=== PATIENT | female | born 1965 | race Caucasian/White ===

== ENCOUNTER 2017-06-01 06:10 | Day surgery (SDC) | payer OTHER ==
[2017-05-31 12:30] VITALS: BMI 33.7
[2017-06-01] MEDS ORDERED: Midazolam HCl 2 mg/2 ml Vial ONE (06:22)
[2017-06-01] MEDS ORDERED: Ropivacaine 0.2% HCl/PF 20 ML ONE (06:22)
[2017-06-01] MEDS ORDERED: Fentanyl 100 MCG/2 ML VIAL ONE (06:22)
[2017-06-01] MEDS ORDERED: Lidocaine 1% (PF) 30 ML VIAL ONE ×2 (06:23→06:47)
[2017-06-01] MEDS ORDERED: Ropivacaine 0.5% HCl/PF (150 MG/30 ML VIAL) ONE (06:42)
[2017-06-01] MEDS ORDERED: CEFAZOLIN/Water 2 GM/20 ML SYRINGE ONE (06:46)
[2017-06-01] MEDS ORDERED: Zolpidem Tartrate 5 MG TAB PO PRN (07:17)
[2017-06-01] MEDS ORDERED: traMADol HCl 50 MG TAB PO PRN ×2 (07:17)
[2017-06-01] MEDS ORDERED: HYDROcodone/Acetaminophen 5/325 mg Tablet PO PRN ×2 (07:17)
[2017-06-01] MEDS ORDERED: Ondansetron HCl/PF 4 MG/2 ML Vial IVP PRN (07:17)
[2017-06-01] MEDS ORDERED: Promethazine HCl 25 MG/ML VIAL IM PRN (07:17)
[2017-06-01] MEDS ORDERED: Ropivacaine 0.2% 550 ML 550 ML NERVE BLCK SCH (07:17)
[2017-06-01] MEDS ORDERED: EPINEPHrine 1 MG/ML AMP ONE (08:31)
[2017-06-01] MEDS ORDERED: Glycopyrrolate 0.2 MG/ML 5 ML SYRINGE ONE (09:02)
[2017-06-01] MEDS ORDERED: Ketorolac Tromethamine 30 MG/ML VIAL ONE (09:02)
[2017-06-01] MEDS ORDERED: PHENYLEPHRINE-NS 100 MCG/ML 10 ML SYRINGE ONE (09:02)
[2017-06-01] MEDS ORDERED: PROPOFOL 200 MG/20 ML VIAL ONE (09:02)
[2017-06-01] MEDS ORDERED: Ondansetron HCl/PF 4 MG/2 ML Vial ONE (09:02)
[2017-06-01] MEDS ORDERED: Dexamethasone 20 MG/5 ML VIAL ONE (09:02)
[2017-06-01] MEDS ORDERED: ePHEDrine/0.9% NaCl/PF SYRINGE 50 mg/10 ml ONE (09:02)
--- NOTE | 2017-06-04 01:23 | OP ---
DATE OF OPERATION: 06/01/2016 PREOPERATIVE DIAGNOSES: 1. Right shoulder labral tear with associated cyst formation. 2. Right shoulder proximal biceps tendinopathy with tear. 3. Right acromioclavicular arthritis, severe. POSTOPERATIVE DIAGNOSES: 1. Right shoulder labral tear with associated cyst formation. 2. Right shoulder proximal biceps tendinopathy with tear. 3. Right acromioclavicular arthritis, severe. PROCEDURES PERFORMED: 1. Right shoulder arthroscopy with extensive labral debridement. 2. Open biceps tenodesis, subpectoral. 3. Open distal clavicle excision. SURGEON: Rob Small MD ANESTHESIA: General with upper extremity regional block. ESTIMATED BLOOD LOSS: 20 mL DRAINS: None. SPECIMENS: None. COMPLICATIONS: None. ORTHOPEDIC IMPLANTS: Arthrex cortical button for proximal biceps tenodesis. OPERATIVE INDICATIONS: The patient is a pleasant 52-year-old female who is right hand dominant. She presented for evaluation of persistent anterior right shoulder pain despite conservative measures in cluding activity modification, anti-inflammatories, and injections. Both clinical and radiographic f indings were consistent with significant degenerative tearing of proximal biceps tendon and labrum an d severe right acromioclavicular arthritis. Risks and benefits of proceeding with surgical intervent ion were discussed in detail as well as postoperative convalescence and plan for return to work. DESCRIPTION OF PROCEDURE: The patient's right upper extremity was marked in the preoperative holding area and a regional block was performed by the Anesthesia team. She was transferred to the operativ e suite in a supine position where general anesthesia was induced. She was transitioned to a beach c hair position ensuring the head and neck were in neutral alignment and all bony prominences were well padded. Her right upper extremity was then prepped and draped in the usual sterile fashion. A surg ical timeout was performed correctly identifying the patient, procedure, and laterality. Perioperati ve antibiotics were administered. A standard posterolateral viewing portal was established in outside to end fashion. We then establis hed an anterior working portal in the rotator interval under spinal needle localization. A threaded cannula was then inserted. Diagnostic arthroscopy was then performed. The biceps tendon was found to have significant inflammation with a midsubstance tear extending dista lly at the joint. She also had a large degenerative superior labral tear and significant labral fray ing both on the anterior and posterior labrum. She was found to have an intact subscapularis tendon. She also had intact supraspinatus, infraspinatus, and teres minor rotator cuff tendons. There were several small cartilaginous loose bodies in the axillary pouch that were removed. She had some foca l areas of grade II articular cartilage changes on both the glenoid and the humeral head consistent w ith mild glenohumeral arthritis. First, we used an arthroscopic biter to transect the biceps tendon at its attachment to the superior labrum. We then inserted a motorized shaver to gently debride the stump back to the superior labrum. We also debrided all loose tissue of the superior, anterior, and posterior labrum back to stable deneen rders. We utilized the shaver also to remove the cartilaginous loose bodies in the axillary pouch. We did not need to perform any rotator cuff debridement. Using a probe, we felt on the anterior and posterior aspects of the subscapularis and were not able to identify any additional loose bodies that had been visualized on the MRI. We then inserted our camera into the subacromial space and all bursal tissue was transected. The rot ator cuff was intact from the bursal side and moved as 1 unit. We identified large osteophytes on th e inferior aspect of the distal clavicle, which we would remove during our open procedure. All remai ivette fluid was removed from the shoulder and the scope was removed. We then turned our attention towards the biceps tenodesis. A 3 cm incision was made in the anterior axilla at the level of the inferior border of the pectoralis major. Blunt dissection was carried tawanda n to the level of the pectoralis major where a blunt Hohmann retractor was placed on the lateral aspe ct of the humerus. We then manually palpated the biceps tendon and opened up the tendon sheath. The tendon was manually extracted and a FiberLoop suture was then placed starting at the musculotendinou s junction extending 3 cm proximally. The remaining stump was then transected off. We then attached the FiberLink suture to the cortical button. Next, we prepared the site of our tenodesis by using a carl elevator to subperiosteally strip all tissue off the anterior humerus at the distal bicipital gr oove. A 3.2 mm guidepin was then used to make a unicortical hole. We then placed our cortical butto n within the intramedullary canal and secured down our biceps for the tenodesis. Using a free needle , we then locked the suture in place and tied down the biceps tendon. We had a good secure fixation with near anatomic tension of the biceps. This wound was then copiously irrigated. Next, we turned our attention towards the distal clavicle excision. A 4 cm incision was made centere d over the distal clavicle at the acromioclavicular joint. Sharp dissection was carried down through the fascia directly to bone. Anterior and posterior fascial flaps were then elevated. We identifie d the joint and transected the distal clavicle approximately 1 cm medially. We then utilized a ronge ur and file to remove all extraneous bony debris. We manually palpated that the entire bony section was adequate throughout a full shoulder range of motion without impingement. 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 The deep fascia was then closed with interrupted 0 Vicryl sutu re. The skin was then closed meticulously in a layered fashion with 2-0 Vicryl and 3-0 Monocryl. Th e arthroscopy portal sites were closed with 3-0 Monocryl. The biceps incision was closed with 3-0 Mo nocryl in running 3-0 nylon. Dermabond was utilized on the incisions as well. Dry dressings were ap plied and general anesthesia was removed. She was transferred to the recovery in good condition. POSTOPERATIVE PLAN: The patient will be nonweightbearing right upper extremity in a slingshot for co ort. She can begin range of motion as tolerated. She will follow up in 1 week. Discharged on hyd rocodone, Toradol, Zofran.
== END 2017-06-01 11:51 | disposition home or self-care (01) ==
LOC: SDC 06:10
PROVIDERS: ATTEND Orthopaedic Surgery
PROC: 0RHJ04Z Insertion of Internal Fixation Device into Right Shoulder Joint, Open Approach (ICD-10-PCS; principal; 2017-06-01)
PROC: 0PB90ZZ Excision of Right Clavicle, Open Approach (ICD-10-PCS; principal; 2017-06-01)
PROC: 0RBJ4ZZ Excision of Right Shoulder Joint, Percutaneous Endoscopic Approach (ICD-10-PCS; principal; 2017-06-01)
PROC: 0LS30ZZ Reposition Right Upper Arm Tendon, Open Approach (ICD-10-PCS; principal; 2017-06-01)
DX: S43.401A Unspecified sprain of right shoulder joint, initial encounter (principal); S46.211A Strain of muscle, fascia and tendon of other parts of biceps, right arm, initial encounter; M19.011 Primary osteoarthritis, right shoulder; S46.219A Strain of muscle, fascia and tendon of other parts of biceps, unspecified arm, initial encounter; K21.9 Gastro-esophageal reflux disease without esophagitis; J45.909 Unspecified asthma, uncomplicated; Z98.84 Bariatric surgery status; Z79.890 Hormone replacement therapy; Z79.899 Other long term (current) drug therapy; Z88.7 Allergy status to serum and vaccine; Z88.8 Allergy status to other drugs, medicaments and biological substances; Z90.49 Acquired absence of other specified parts of digestive tract; Z90.710 Acquired absence of both cervix and uterus; Z90.722 Acquired absence of ovaries, bilateral; Z90.79 Acquired absence of other genital organ(s); Z98.890 Other specified postprocedural states
CPT/HCPCS: A4306; C1713; J0171; J1100; J1885; J2001; J2250; J2405; J2704; J2795; J3010

== ENCOUNTER 2018-07-10 12:33 | Outpatient (CLI) | payer OTHER | END 2018-07-10 12:34 | disposition home or self-care (01) | LOC: BICMAMMO 12:33 | PROVIDERS: ATTEND Obstetrics & Gynecology | DX: Z12.31 Encounter for screening mammogram for malignant neoplasm of breast (principal); N63.10 Unspecified lump in the right breast, unspecified quadrant | CPT/HCPCS: 77063; 77067 ==

== ENCOUNTER 2018-07-23 07:42 | Outpatient (CLI) | payer OTHER ==
--- NOTE | 2018-07-23 09:28 | ULT ---
LIMITED ULTRASOUND RIGHT BREAST: 07/23/2018 HISTORY: Mass seen on screening mammogram in the upper outer right breast. TECHNIQUE: Limited sonographic evaluation of the right breast was performed. FINDINGS: There is a hypoechoic, oval-shaped mass seen in the right breast, at the 10 o'clock position, which m easures approximately 9.4 mm in maximal dimension. This is thought to correspond to the mammographic abnormality. There is an additional tiny, approximately 4 mm, hypoechoic nodule within the right breast, at the 10 o'clock position, which is difficult to further characterize due to very small size. IMPRESSION: 1. BI-RADS category 4-Suspicious abnormality. Biopsy is recommended. 2. The larger mass in the right breast is amenable to ultrasound guided breast biopsy 3. A six-month follow-up evaluation of the smaller mass in the right breast can be performed, depend ing on pathology results of the biopsy of the larger lesion in the right breast. The above findings and recommendations for biopsy of the larger mass, right breast, were discussed wi Dr. Annabelle Mitchell's nurse, on 07/23/2018, at 0809 hours. CODE CR POS: [facility]
--- NOTE | 2018-07-24 07:16 | ULT ---
ULTRASOUND GUIDED BIOPSY RIGHT BREAST MASS ULTRASOUND GUIDED BIOPSY MARKER CLIP AT SITE OF RIGHT BREAST MASS: Date: 07/23/18 HISTORY: Mass seen within the right breast on mammographic evaluation, as well as on sonographic evaluation. B iopsy was recommended. TECHNIQUE: The procedure, including risks and complications, were explained to the patient and informed consent was obtained. The patient was placed on the sonography table in the supine position. Limited sonographic evaluation of the right breast was performed. Mass in the right breast 10:00 posi tion was localized, and the area was marked and then meticulously prepped and draped in the usual samuel rile fashion. Skin and subcutaneous tissues were infiltrated with buffered 1% lidocaine for local anesthesia. A sma ll skin incision was made. Utilizing concurrent real-time ultrasound guidance, a 14 gauge biopsy need le was placed, and a total of five 14 gauge core needle biopsy specimens were obtained. A biopsy marker clip was then deployed with ultrasound guidance within the right breast mass. Hemostasis was achieved with direct pressure. A dry, sterile dressing was placed. The patient tolerat ed the procedure well and without immediate complication. Postprocedure mammogram demonstrates biopsy marking clip in the region of the mass noted on mammogram, which corresponds to sonographic findings . IMPRESSION: 1. Technically successful ultrasound guided biopsy of right breast mass. Pathology is currently pend ing. 2. Technically successful biopsy marker clip placement within the right breast mass. POS: [facility]
== END 2018-07-23 07:43 | disposition home or self-care (01) ==
LOC: BICULT 07:42
PROVIDERS: ATTEND Obstetrics & Gynecology
DX: N64.89 Other specified disorders of breast (principal); N63.11 Unspecified lump in the right breast, upper outer quadrant
CPT/HCPCS: 19083; 88305; 88341; 88342

== ENCOUNTER 2019-01-10 09:05 | Outpatient (CLI) | payer OTHER ==
--- NOTE | 2019-01-10 12:55 | ULT ---
RIGHT BREAST DIAGNOSTIC ULTRASOUND: 01/10/19 INDICATION: Follow-up focal lesion within the upper outer aspect of the right breast. FINDINGS: The small incidental lesion seen at the time of the right breast biopsy in June 2018 in the right breast 10 o'clock position, 6 cm from the nipple is stable measuring 3.2 x 3.8 x 1.9 mm. The lesion that was biopsied was found to be a fibroadenoma measuring 9 x 5 mm is also stable in the right zuleyma st 10 o'clock position. IMPRESSION: BIRADS 3: Probably Benign Finding Initial Short-Interval Follow-Up Suggested Initial short-term follow up (usually 6-month) examination. The small 4 mm oval hypoechoic lesion within the right breast 10 o'clock position about 6 cm from the nipple is likely stable and probably is reflective of a tiny lymph node or an additional small fibro adenoma. As a conservative measure, a follow-up right breast ultrasound in six months is recommended to document stability. This lesion is not identified by mammogram. The biopsy proven fibroadenoma within the right breast 10 o'clock position measuring 9 mm is stable t o the comparison examination. POS: OFF
--- NOTE | 2019-01-14 06:46 | MMO ---
Right Breast MAMMO Unilat Diag [facility]. CLINICAL HISTORY: Patient is 53 years old and is seen for diagnostic exam. The patient has no family history of breast cancer. The patient has no personal history of cancer. The patient has a history of right Ultrasound Guided Core Biopsy - benign. VIEWS: The views performed were: right craniocaudal with tomosynthesis; right mediolateral oblique with tomosynthesis; and right mediolateral with tomosynthesis. FILMS COMPARED: The present examination has been compared to a prior imaging study performed at [facility] on 07/10/2018. MAMMOGRAM FINDINGS: There are scattered fibroglandular densities. There is a stable oval mass measuring 8 millimeters with associated biopsy clip seen in the upper-outer region of the right breast. Found to be a fibroadenoma on biopsy. There are no suspicious masses, suspicious calcifications, or new areas of architectural distortion. IMPRESSION: THERE IS NO MAMMOGRAPHIC EVIDENCE OF MALIGNANCY. THE FINDINGS AND RECOMMENDATIONS WERE DISCUSSED WITH THE PATIENT PRIOR TO HER LEAVING THE CENTER. A ROUTINE FOLLOW-UP MAMMOGRAM IN 6 MONTHS IS RECOMMENDED. THE RESULTS OF THIS EXAM WERE SENT TO THE PATIENT. ACR BI-RADS Category 2 - Benign finding MAMMOGRAPHY NOTE: 1. A negative mammogram report should not delay a biopsy if a dominant of clinically suspicious mass is present. 2. Approximately 10% to 15% of breast cancers are not detected by mammography. 3. Adenosis and dense breasts may obscure an underlying neoplasm. Reported by: SARIKA HERNANDEZ MD Electonically Signed: [id number]
== END 2019-01-10 09:06 | disposition home or self-care (01) ==
LOC: BICMAMMO 09:05
PROVIDERS: ATTEND Obstetrics & Gynecology
DX: R92.8 Other abnormal and inconclusive findings on diagnostic imaging of breast (principal); D24.1 Benign neoplasm of right breast
CPT/HCPCS: G0279

== ENCOUNTER 2020-03-11 08:53 | Outpatient (CLI) | payer OTHER ==
--- NOTE | 2020-03-11 09:44 | MMO ---
Bilateral MAMMO Bilat Diag [facility]. CLINICAL HISTORY: Patient is 54 years old and is seen for diagnostic exam. The patient has no family history of breast cancer. The patient has no personal history of cancer. The patient has a history of right Ultrasound Guided Core Biopsy in June, - fibroadenoma. VIEWS: The views performed were: bilateral craniocaudal with tomosynthesis; bilateral mediolateral oblique with tomosynthesis; bilateral mediolateral with tomosynthesis; right craniocaudal spot compression with tomosynthesis; and right mediolateral spot compression with tomosynthesis. FILMS COMPARED: The present examination has been compared to prior imaging studies performed at [facility] on 07/10/2018 and 01/10/2019. This study has been interpreted with the assistance of computer-aided detection. MAMMOGRAM FINDINGS: There are scattered fibroglandular densities. Finding 1: There is a stable round mass with circumscribed margins and associated biopsy clip seen in the upper-outer region of the right breast. Finding 2: There is a stable focal asymmetry measuring 6 millimeters with circumscribed margins seen in the sub-areolar region of the right breast. There are no suspicious masses, suspicious calcifications, or new areas of architectural distortion. IMPRESSION: THERE IS NO MAMMOGRAPHIC EVIDENCE OF MALIGNANCY. A ROUTINE FOLLOW-UP MAMMOGRAM IN 1 YEAR IS RECOMMENDED. THE RESULTS OF THIS EXAM WERE SENT TO THE PATIENT. ACR BI-RADS Category 2 - Benign finding MAMMOGRAPHY NOTE: 1. A negative mammogram report should not delay a biopsy if a dominant of clinically suspicious mass is present. 2. Approximately 10% to 15% of breast cancers are not detected by mammography. 3. Adenosis and dense breasts may obscure an underlying neoplasm. Reported by: PRIYA ZAVALETA MD Electonically Signed: [id number]
== END 2020-03-11 08:54 | disposition home or self-care (01) ==
LOC: BICMAMMO 08:53
PROVIDERS: ATTEND Family Medicine
DX: N63.10 Unspecified lump in the right breast, unspecified quadrant (principal)
CPT/HCPCS: 77066; G0279